=== PATIENT | male | born 1995 | race Caucasian/White ===

== ENCOUNTER 2017-08-06 09:12 | Emergency (ER) | payer SELFPAY ==
--- NOTE | 2017-08-06 10:06 | ERNOTE ---
Medical Problem HPI - Narrative Date of Service: 08/06/17 - General Chief Complaint: General Assessment Time Seen by Provider: 08/06/17 09:49 Source: patient Exam Limitations: no limitations - Immun/Allergies/Home Medications Immunizations: IMMUNIZATION HX History of Influenza Vaccine No Hx Pneumococcal Vaccination No Allergies/Adverse Reactions: Allergies No Known Allergies Allergy (Unverified 08/06/17 09:24) Home Medications: HOME MEDICATIONS Doxycycline Monohydrate 100 mg PO BID #20 tablet 08/06/17 [Last Taken Unknown] - History of Present History Narrative: Pt. comes in with c/o B testicular pain and swelling. Pt. states that this has been occurring for two days and states that he has burning with urination and lower abdominal pain with this. Pt. states that he is sexually active but has been with the same partner for over a year and feels that there is no way he could have a STD. Timing: getting worse Severity: moderate Modifying Factors - (Improves): Present: other - denies Modifying Factors - (Worsens): Present: movement, other - palpation Review of Systems - Review of Systems Constitutional: Present: no symptoms reported. Absent: fever, chills, weakness , fatigue, malaise EYE: Present: no symptoms reported ENT: Present: no symptoms reported Respiratory: Present: no symptoms reported. Absent: shortness of breath, cough , wheezing Cardiology: Present: no symptoms reported. Absent: chest pain, palpitations, edema Gastrointestinal/Abdominal: Present: no symptoms reported. Absent: nausea, vomiting, diarrhea, abdominal pain Genitourinary: Present: pain - B testicular pain, dysuria. Absent: frequency Musculoskeletal: Present: no symptoms reported. Absent: back pain, joint pain Skin: Present: no symptoms reported. Absent: rash, change in color Neurological: Present: no symptoms reported. Absent: headache, dizziness/light- headedness, weakness, numbness All Other Systems: All systems neg except as marked - Patient's Past Medical History Patient History - Medical: No pertinent hx Patient History - Cardiac/Respiratory: No pertinent hx Patient History - Cancer: No Hx of Cancer Patient History - Surgical Procedures: No surgical history Patient History - Other: None - Social History Living Situations: home Psych History: No pertinent hx Alcohol Use: none Drug Use: none - Immunizations Hx Pneumococcal Vaccination: No History of Influenza Vaccine: No Physical Exam - Physical Exam General Appearance: Present: wd/wn, alert, no apparent distress Head Exam: Present: normal inspection, no evidence of injury Eye Exam: Normal inspection: bilateral Ears, Nose, Throat: Present: normal ENT inspection Neck: Present: normal inspection, nontender, supple, full range of motion. Absent: lymphadenopathy (R), lymphadenopathy (L) Respiratory: Present: no respiratory distress, normal breath sounds, no accessory muscle use, chest nontender, lungs clear Cardiovascular/Chest: Present: regular rate, rhythm, no murmur, normal peripheral pulses Gastrointestinal/Abdominal: Present: normal bowel sounds, nondistended, soft, no organomegaly, tenderness - suprapubic Male Genitals Exam: Present: no hernia, epididymal tenderness, scrotum tenderness (R), scrotum tenderness (L), testicular tenderness (R), testicular tenderness (L), other - L epidydimal tenderness. Absent: inguinal tenderness, urethral discharge Back Exam: Present: normal inspection Extremity Exam: Present: normal inspection Neurological Exam: Present: alert, oriented, normal mood/affect, no motor/ sensory deficits Skin Exam: Present: normal color, warm/dry. Absent: pallor, skin rash ED Progress - Date and Time Seen: Date and Time: 08/06/17 10:05 will do US as I am unable to rule out torsion however feel that this is likely epidydimitis. 08/06/17 11:21 Pt. with complex orchitis epidydimitis will treat with rocephin and doxycycline although pt. denies possibility for STD feel that the needs coverage. - Results and Orders Patient's Lab Results:: I have reviewed the patient's lab results. - Vital Signs Patient's Vital Signs:: I have reviewed the patient's vital signs. Vital Signs: Vital Signs 08/06/17 08/06/17 09:19 09:50 Temperature 36.6 C Pulse Rate 71 70 Respiratory 12 12 Rate Blood Pressure 159/86 154/82 O2 Sat by Pulse 100 100 Oximetry - CT/Ultrasound CT/Ultrasound Narrative: US negative for torsiion but with orchitis epidydimitis - Progress/Reassessment Chief Complaint: General Assessment Departure Clinical Impression: Acute epididymitis, Orchitis - Departure Disposition: Home self-care Condition: Good Instructions: Orchitis, Epididymitis Additional Instructions: Please follow up with urology provider in 2-3 days. Prescriptions: Doxycycline Monohydrate 100 mg PO BID #20 tablet
[2017-08-06 10:12] LABS: Urine Bilirubin Negative (NEGATIVE); Urine Blood Negative /ul (NEGATIVE); Urine Ketone Negative (NEGATIVE); Urine Nitrite Negative (NEGATIVE); Urine Protein Negative (NEGATIVE); Urine Urobilinogen Normal (NORMAL); Urine pH 7.5 pH (5.0-7.0)
[2017-08-06 10:19] LABS: Urine Appearance Clear; Urine Bacteria None Seen; Urine Color Yellow; Urine RBC None Seen /hpf (0-5); Urine WBC None Seen /hpf (0-5)
[2017-08-06 10:52] VITALS: BP 135/78
[2017-08-06] MEDS ORDERED: LIDOCAINE HCL 20 ML VIAL ONE (11:31)
== END 2017-08-06 11:35 | disposition home or self-care (01) ==
LOC: ER 09:12
DX: N45.3 Epididymo-orchitis